=== PATIENT | male | born 1975 | race Caucasian/White ===

== ENCOUNTER → 2019-10-22 | Outpatient (CLI) | payer BC, SELFPAY ==
[~2019-10-22] MED LIST: AMIT10 PO; ATOR20 PO; BUPR150ER PO; CIPR500 PO; CLON.5 PO; HYDACE10 PO; HYDMOR4 PO; HYDPAM50 PO; LISI20 PO; MELO7.5 PO; METR500 PO; ROSU10TA PO
[2019-10-22 20:14] LABS: U Amphetamine Screen Not Detected; U Barbituate Screen Not Detected; U Benzodiazapine Screen Not Detected; U Buprenorphine Screen Not Detected; U Cannabinoids Screen Not Detected; U Cocaine Screen Not Detected; U Methadone Screen Not Detected; U Methamphetamine Screen Not Detected; U Opiates Screen Not Detected; U Oxycodone Screen Not Detected; U Phencyclidine Screen Not Detected; U Propoxyphene Screen Not Detected
== END | disposition home or self-care (01) ==
LOC: LAB SHORT 11:35 → LAB 11:35
PROVIDERS: Nurse Practitioner Family
DX: Z51.81 Encounter for therapeutic drug level monitoring (principal); Z79.891 Long term (current) use of opiate analgesic

== ENCOUNTER → 2019-12-18 | Outpatient (CLI) | payer BC, OTHER ==
[2019-12-18 14:37] LABS: U Amphetamine Screen Not Detected; U Barbituate Screen Not Detected; U Benzodiazapine Screen Not Detected; U Buprenorphine Screen Not Detected; U Cannabinoids Screen Not Detected; U Cocaine Screen Not Detected; U Methadone Screen Not Detected; U Methamphetamine Screen Not Detected; U Opiates Screen DETECTED; U Oxycodone Screen Not Detected; U Phencyclidine Screen Not Detected; U Propoxyphene Screen Not Detected
== END | disposition home or self-care (01) ==
LOC: LAB SHORT 13:26 → LAB 13:26
PROVIDERS: Nurse Practitioner Family
DX: F10.10 Alcohol abuse, uncomplicated (principal); Z79.891 Long term (current) use of opiate analgesic

== ENCOUNTER 2021-04-01 18:51 | Emergency (ER) | payer OTHER ==
[~2021-04-01] VITALS: Ht 180.3 cm; Wt 66.7 kg
[2021-04-01 19:52] LABS: BASOPHILS ABSOLUTE AUTO 0.06 K/mm3 (0.00-0.23); BASOPHILS PERCENT AUTO 2 % (0-2); EOSINOPHILS ABSOLUTE AUTO 0.01 K/mm3 (0.00-0.68); EOSINOPHILS PERCENT AUTO 0 % (0-6); Hematocrit 25.9 % (37.0-53.0); Hemoglobin 9.2 g/dL (13.5-17.5); IMMATURE GRAN ABSOLUTE AUTO 0.04 K/mm3 (0.00-0.10); IMMATURE GRAN PERCENT AUTO 1 % (0-1); LYMPHOCYTES ABSOLUTE AUTO 0.66 K/mm3 (0.84-5.20); LYMPHOCYTES PERCENT AUTO 17 % (21-46); MONOCYTES ABSOLUTE AUTO 0.61 K/mm3 (0.16-1.47); MONOCYTES PERCENT AUTO 15 % (4-13); Mean Corpuscular HGB 34.6 pg (26.0-34.0); Mean Corpuscular HGB Conc 35.5 g/dL (31.5-36.5); Mean Corpuscular Volume 97 fL (80-100); Mean Platelet Volume 10.7 fL (9.1-12.4); NEUTROPHILS ABSOLUTE AUTO 2.62 K/mm3 (1.96-9.15); NEUTROPHILS PERCENT AUTO 65 % (41-73); Platelet Count 83 K/mm3 (150-400); RDW Coefficient Variation 11.2 % (11.7-14.2); RDW Standard Deviation 40.1 fL (35.1-46.3); Red Blood Cell Count 2.66 M/mm3 (4.30-5.90)
[2021-04-01] MEDS ORDERED: LISI20 PO (19:52)
[2021-04-01] MEDS ORDERED: AMOCLA875 PO (19:53)
[2021-04-01] MEDS ORDERED: AMLO10 PO (19:53)
[2021-04-01 20:14] LABS: Albumin, Blood 4.2 g/dL (3.4-5.0); Albumin/Globulin Ratio 1.1 (0.8-1.8); Bilirubin, Total 2.4 mg/dL (0.1-1.0); Calcium, Blood 9.6 mg/dL (8.5-10.1); Creatinine, Blood 1.81 mg/dL (0.60-1.20); Globulin, Blood 3.7 g/dL (2.2-4.0); Potassium, Blood 2.4 mmol/L (3.5-5.5); Total Protein, Blood 7.9 g/dL (6.4-8.2)
[2021-04-01] MEDS ORDERED: CHLO25 PO (20:39)
[2021-04-01] MEDS ORDERED: K-Dur 20 meq T20 MEQ PO (20:39)
== END 2021-04-01 21:54 | disposition home or self-care (01) ==
LOC: ER 18:51
PROVIDERS: Physician Assistant
DX: F10.20 Alcohol dependence, uncomplicated (principal); D69.6 Thrombocytopenia, unspecified; D64.9 Anemia, unspecified; E87.6 Hypokalemia; Z79.899 Other long term (current) drug therapy
CPT/HCPCS: 36415; 70450; 80053; 85025; 86850; 86900; 86901; 93005; 93010; 99284-25; A9270

== ENCOUNTER 2021-10-15 13:58 | Inpatient (IN) | payer OTHER ==
[~2021-10-15] VITALS: Ht 180.3 cm; Wt 65.0 kg
[~2021-10-15 13:58] MED LIST changes: +AMLO10 PO; +AMOCLA875 PO; +CHLO25 PO; +K-Dur 20 meq T20 MEQ PO
[2021-10-15 14:46] LABS: BASOPHILS ABSOLUTE AUTO 0.03 K/mm3 (0.00-0.23); BASOPHILS PERCENT AUTO 0 % (0-2); EOSINOPHILS PERCENT AUTO 0 % (0-6); Hematocrit 29.1 % (37.0-53.0); Hemoglobin 9.1 g/dL (13.5-17.5); IMMATURE GRAN ABSOLUTE AUTO 0.14 K/mm3 (0.00-0.10); IMMATURE GRAN PERCENT AUTO 1 % (0-1); LYMPHOCYTES ABSOLUTE AUTO 0.38 K/mm3 (0.84-5.20); LYMPHOCYTES PERCENT AUTO 3 % (21-46); MONOCYTES ABSOLUTE AUTO 0.52 K/mm3 (0.16-1.47); MONOCYTES PERCENT AUTO 5 % (4-13); Mean Corpuscular HGB 35.5 pg (26.0-34.0); Mean Corpuscular HGB Conc 31.3 g/dL (31.5-36.5); Mean Corpuscular Volume 114 fL (80-100); Mean Platelet Volume 10.9 fL (9.1-12.4); NEUTROPHILS PERCENT AUTO 91 % (41-73); NRBC ABSOLUTE 0.06 K/mm3 (0.00-0.02); NRBC Auto 0.5 /100 WBC (0.0-0.2); Platelet Count 50 K/mm3 (150-400); RDW Coefficient Variation 14.5 % (11.7-14.2); RDW Standard Deviation 59.2 fL (35.1-46.3); Red Blood Cell Count 2.56 M/mm3 (4.30-5.90); White Blood Cell Count 11.37 K/mm3 (4.00-11.30)
[2021-10-15 14:53] LABS: Albumin, Blood 2.5 g/dL (3.4-5.0); Albumin/Globulin Ratio 0.5 (0.8-1.8); Bilirubin, Total 4.7 mg/dL (0.1-1.0); Bun/Creatinine Ratio 6.6 (12.0-20.0); Calcium, Blood 7.9 mg/dL (8.5-10.1); Creatinine, Blood 1.82 mg/dL (0.60-1.20); Globulin, Blood 4.8 g/dL (2.2-4.0); Potassium, Blood 3.2 mmol/L (3.5-5.5); Total Protein, Blood 7.3 g/dL (6.4-8.2)
[2021-10-15 14:59] LABS: International Normalized Ratio 1.38; Prothrombin Time Results 14.2 Sec (9.7-11.5)
[2021-10-15 16:28] LABS: Base Excess Venous -22.8 mmol/L; Bicarbonate Venous 8.9 mmol/L (24.0-30.0); PCO2 Venous 20.8 mmHg (38-42); PO2 Venous 86.1 mmHg (38-42); pH Blood Venous 7.11 (7.34-7.37)
[2021-10-15 20:46] LABS: U Amphetamine Screen Not Detected; U Barbituate Screen Not Detected; U Benzodiazapine Screen Not Detected; U Buprenorphine Screen Not Detected; U Cannabinoids Screen Not Detected; U Cocaine Screen Not Detected; U Methadone Screen Not Detected; U Methamphetamine Screen Not Detected; U Opiates Screen Not Detected; U Oxycodone Screen Not Detected; U Phencyclidine Screen Not Detected; U Propoxyphene Screen Not Detected
--- NOTE | 2021-10-15 22:00 | NUR ---
ADMISSION PATIENT ARRIVED TO PCU 19 FROM ED. SLID OVER TO PCU BED BY STAFF. BANANA BAG AND POTASSIUM INFUSING. ORIENTED TO ROOM AND CALL LIGHT SYSTEM. DENIES NEEDS AT THIS TIME.
[2021-10-16 04:30] LABS: Hematocrit 27.2 % (37.0-53.0); Hemoglobin 8.3 g/dL (13.5-17.5); Mean Corpuscular HGB 36.4 pg (26.0-34.0); Mean Corpuscular HGB Conc 30.5 g/dL (31.5-36.5); Mean Platelet Volume 11.8 fL (9.1-12.4); NRBC ABSOLUTE 0.03 K/mm3 (0.00-0.02); NRBC Auto 0.3 /100 WBC (0.0-0.2); RDW Coefficient Variation 14.5 % (11.7-14.2); RDW Standard Deviation 61.6 fL (35.1-46.3); Red Blood Cell Count 2.28 M/mm3 (4.30-5.90); White Blood Cell Count 10.53 K/mm3 (4.00-11.30)
[2021-10-16 04:38] LABS: Mean Corpuscular Volume 119 fL (80-100)
[2021-10-16 04:39] LABS: Platelet Count 48 K/mm3 (150-400)
[2021-10-16 05:06] LABS: Base Excess Venous -18.5 mmol/L; Bicarbonate Venous 11.1 mmol/L (24.0-30.0); PCO2 Venous 22.1 mmHg (38-42); PO2 Venous 51.2 mmHg (38-42); pH Blood Venous 7.21 (7.34-7.37)
[2021-10-16 05:08] LABS: BAND PERCENT MAN 30 % (0-8); BASOPHILS PERCENT MAN 0 % (0-2); EOSINOPHILS PERCENT MAN 0 % (0-6); LYMPHOCYTES ABSOLUTE MAN 0.52 K/mm3 (0.84-5.20); LYMPHOCYTES PERCENT MAN 5 % (21-46); METAMYELOCYTE ABSOLUTE MAN 0.21 K/mm3 (0.00-0.00); METAMYELOCYTE PERCENT MAN 2 % (0-0); MONOCYTES ABSOLUTE MAN 0.42 K/mm3 (0.16-1.47); MONOCYTES PERCENT MAN 4 % (4-13); NEUTROPHILS ABSOLUTE MAN 9.37 K/mm3 (1.96-9.15); SEG NEUTROPHILS PERCENT MAN 59 % (41-73); TOTAL CELLS COUNTED 100
[2021-10-16 05:27] LABS: Albumin, Blood 2.2 g/dL (3.4-5.0); Albumin/Globulin Ratio 0.5 (0.8-1.8); Bilirubin, Total 4.4 mg/dL (0.1-1.0); Bun/Creatinine Ratio 5.9 (12.0-20.0); Calcium, Blood 7.4 mg/dL (8.5-10.1); Creatinine, Blood 2.36 mg/dL (0.60-1.20); Globulin, Blood 4.4 g/dL (2.2-4.0); Potassium, Blood 3.7 mmol/L (3.5-5.5); Total Protein, Blood 6.6 g/dL (6.4-8.2)
[2021-10-16 05:31] LABS: Stool Occult Blood Guaiac 1 Pos (Neg)
[2021-10-16 05:31] LABS: Phosphorus, Blood 4.4 mg/dL (2.5-4.9)
--- NOTE | 2021-10-16 06:06 | NUR ---
SHIFT SUMMARY PATIENT ALERT AND ORIENTED, FLAT AFFECT BUT ANSWERS QUESTIONS APPROPRIATELY. SOFT BPs BUT ALL OTHER VITALS STABLE AND PATIENT IS ON RA WITH O2 SAT ABOVE 90%, SEE FLOWSHEET. PATIENT DID HAVE ONE EPISODE OF APPROXIMATELY 300 MLs OF DARK COLORED EMESIS. SMALL BOWEL MOVEMENT THIS SHIFT, CALL PLACED TO HOSPITALIST FOR STOOL SAMPLE ORDER DUE TO BLACK TARRY STOOL. POS GUAIC RESULT. NO COMPLAINTS OF PAIN THIS SHIFT. NS INFUSING. ABLE TO TURN SELF IN BED. NO OTHER SIGNIFICANT CHANGES, WILL REPORT TO DAY SHIFT RN.
[2021-10-16 08:45] LABS: International Normalized Ratio 1.96; Prothrombin Time Results 19.7 Sec (9.7-11.5)
--- NOTE | 2021-10-16 11:25 | NUR ---
Patient is sitting up in bed and alert. Patient talks about how awful he feels overall (spirit, mind and body). He talks about his divorce, his 3 sons (16,17 qnd 21 y/o) and about his girlfriend. He says he misses his dog and wants to go home. He wants "all this to end." When asked what "all this" is he states "everything." He says he has a Spiritism belief system but not a mandaen attender. His girlfriend and parents attend mandaen. He talks about his drinking and his need to keep doing so in order to avoid the massive detox process. He does not intend to quit anytime soon. I attempt to establish therapeutic alliance, normalize his experience and provide empathetic listening and prayer. Patient responds well and welcomes another visit tomorrow where I will assist patient in a DC spiritual plan of care.
--- NOTE | 2021-10-16 14:46 | NUR ---
Met with pt and multiple family members at bedside. Pt is alert, oriented, pleasant. He c/o modearate SOB and breakthrough pain. Bedside RN Silver bringing roxanol for pain/SOB. Dina, Claim Rep teressa Veloz. Pt asked about hospice, he states he would that very much. Dina will arrange hospice service in the am with whomever has availability soonest, as requested by family.
--- NOTE | 2021-10-16 15:53 | NUR ---
I went with Rossy, Palliative Care nurse to visit the patient in his [facility] room [id number]. Patient was alert and oriented. Patient's girlfriend and 5 other family members were also in the room. Patient's family and the patient have decided to proceed with comfort care with the possibility of discharging home with hospice. There was no preference on agency. I have contacted Edna Son with [facility] that states [facility] could start Saturday. I also faxed a referral to [facility] who states they could start tomorrow. Will wait and consult with Dr. Bowen and the patient's family in the morning.
--- NOTE | 2021-10-16 17:02 | NUR ---
END OF SHIFT SUMMARY: PATIENT HAD MULTIPLE CRITICAL LABS, SUCH CBG'S WHICH WERE EXTREMEMLY LOW, AND A VERY INCREASED LACTIC ACID. PATINET WAS SWITCHED FROM NS TO D5 / 1/2NS, FLOWING AT 100. BAG OF POTASSIUM PIGGYBACK AND CONTINUOS PROTONIX. PATIENTS BLOOD PRESSURE STARTED TO DECREASE VERY SLIGHTLY AROUND 1200 HOWEVER, LOW ENOUGH TO HAVING A MAP IN THE 60'S. PROVIDER ARRIVED TO CHECK IN AT THAT SAME TIME, PATIENT WAS FEELING WORSE AND CHOSE TO BECOME COMFORT CARE. PROVIDER AND I EDUCATED ON SITUATION AND CIRCUMSTANCES AROUND DISEASE PROCESS, TRANSITION OF LIFE, COMFORT MEASURES. PATIENT HAD NO QUESTIONS OR CONERNS ABOUT THIS DECISION. DISCONTINUED TELEMETRY. DENIES CHEST PAIN. MEDICATING PER EMAR FOR SX. WILL CONTINUE TO MONITOR.
--- NOTE | 2021-10-16 20:27 | NUR ---
EXPIRATION: RECEIVED REPORT FROM BERENICE LEES PATIENT WAS CLOSE TO PASSING. AT 2009 A FAMILY MEMBER CAME [facility] TO [employer] AND YELLED THE PATIENT DIDN'T HAVE A PULSE AND THEY NEEDED HELP. PATIENT WAS DNR AND COMFORT CARE. THIS RN ARRIVED TO VERIFY WITH BERENICE DESHPANDE. PATIENT WASN'T BREATHING BUT HAD A FAINT PULSE. AT 2015 NO PULSE WAS PALPATED WITH TWO RN VERIFICATION.
--- NOTE | 2021-10-16 22:18 | NUR ---
COMFORT CARE COMPLETE; PATIENT AT 2015 WITH FAMILY AT BEDSIDE. FAMILY TOOK BELONGING BAGS.
--- NOTE | 2021-10-17 01:52 | NUR ---
FINAL DISCHARGE: NICHOLE COELHO COLLECTED PATIENT AT 0145.
== END 2021-10-17 01:45 | DRG 441 ==
LOC: ER 13:58 → MEDS 13:59 → PCU 13:59
PROVIDERS: Family Medicine; Physician Assistant; ADMIT Family Medicine
PROC: HZ2ZZZZ Detoxification Services for Substance Abuse Treatment (ICD-10-PCS; principal; 2021-10-16)
DX: K72.00 Acute and subacute hepatic failure without coma (principal); E43 Unspecified severe protein-calorie malnutrition; R64 Cachexia; E87.2 Acidosis; Z66 Do not resuscitate; Z53.29 Procedure and treatment not carried out because of patient's decision for other reasons; I10 Essential (primary) hypertension; F17.220 Nicotine dependence, chewing tobacco, uncomplicated; R19.5 Other fecal abnormalities; R74.01 Elevation of levels of liver transaminase levels; F10.20 Alcohol dependence, uncomplicated; D69.6 Thrombocytopenia, unspecified; R62.7 Adult failure to thrive; D64.9 Anemia, unspecified; Y90.6 Blood alcohol level of 120-199 mg/100 ml; Z68.20 Body mass index [BMI] 20.0-20.9, adult; Z91.14 Patient's other noncompliance with medication regimen; Z79.2 Long term (current) use of antibiotics; Z79.899 Other long term (current) drug therapy
CPT/HCPCS: 36415; 70450; 80053; 82140; 82270; 82330; 82803; 82947; 83605; 83735; 84100; 85025; 85610; 93005; 93010; 96365; 96366; 96368; 96375; 96376; 97110; 97162; 99285-25; A9270; C9113; G0378; G0480; J1170; J2060; J2405; J3411; J3475; J3480; J7030; J7042